=== PATIENT | female | born 1960 | race Caucasian/White ===

== ENCOUNTER 2016-07-07 12:31 | Emergency (ER) | payer BC, OTHER ==
[~2016-07-07] VITALS: Ht 154.9 cm; Wt 57.1 kg
[~2016-07-07 12:31] MED LIST: ACETAMINOPHEN325 M1 PO; BACTRIM DS TAB1 EACH PO; BACTROBAN NASAL1 GM NASAL; BENICAR 5 MG5 M1 PO; CIPROFLOXACIN500 M1 PO; CONCERTA36 M1 PO; DIAZEPAM 5 MG5 M1; DIFLUCAN150 MG PO; EFFEXOR25 MG PO; LOTEMAX5 ML; NORCO 5-325 TA1 EACH PO; PERCOCET 5-3251 EACH PO; PROAIR HFA8.5 GM INH; TOBRADEX ST EYE5 ML OP; TOBREX5 ML OPHTHALMIC; TUSSIONEX PENN473 ML PO; VALIUM5 MG PO; VALTREX 500 MG500 MG PO; VENTOLIN HFA 1818 GM INH; VICODIN 5-5001 EACH PO; XALATAN2.5 ML; ZOFRAN ODT4 MG PO; ZOFRAN4 MG PO; ZYVOX600 MG PO; [UNRECOGNIZED DRUG - OTHER]
[2016-07-07] MEDS ORDERED: FLONASE 0.05%50 MCG NASAL (13:01)
[2016-07-07] MEDS ORDERED: AUGMENTIN 875875 MG PO (13:01)
[2016-07-07] MEDS ORDERED: MEDROLDOSEPACK PO (13:01)
== END 2016-07-07 14:20 | disposition home or self-care (01) ==
LOC: ER 12:31
DX: J32.9 Chronic sinusitis, unspecified (principal); F10.99 Alcohol use, unspecified with unspecified alcohol-induced disorder; F32.9 Major depressive disorder, single episode, unspecified; I10 Essential (primary) hypertension; F98.8 Other specified behavioral and emotional disorders with onset usually occurring in childhood and adolescence; Z90.710 Acquired absence of both cervix and uterus; Z86.14 Personal history of Methicillin resistant Staphylococcus aureus infection; Z88.8 Allergy status to other drugs, medicaments and biological substances; Z90.12 Acquired absence of left breast and nipple; Z85.3 Personal history of malignant neoplasm of breast